=== PATIENT | male | born 1945 | race Caucasian/White ===

== ENCOUNTER 2024-06-24 09:22 | Inpatient (IN) | payer MEDICARE, OTHER ==
[~2024-06-24] VITALS: Ht 165.1 cm; Wt 77.1 kg
[2024-06-24] MEDS ORDERED: HALOPERIDOL LACTATE INJ 5 MG/ML VIAL ONE (10:00)
[2024-06-24] MEDS: HALOPERIDOL LACTATE INJ 5 MG/ML VIAL IM ONE (10:04)
[2024-06-24] MEDS ORDERED: UMEC62.5 IH (10:39)
[2024-06-24] MEDS ORDERED: HYDR-4303 PO (10:39)
[2024-06-24] MEDS ORDERED: NA P133E RC (10:39)
[2024-06-24] MEDS ORDERED: ASPI-1169 PO (10:39)
[2024-06-24] MEDS ORDERED: CYAN500T64 PO (10:39)
[2024-06-24] MEDS ORDERED: ASCO-352 PO (10:39)
[2024-06-24] MEDS ORDERED: ACET-868 PO (10:39)
[2024-06-24] MEDS ORDERED: ATOR40TA PO (10:39)
[2024-06-24] MEDS ORDERED: CHOL100043 PO (10:39)
[2024-06-24] MEDS ORDERED: METO25TA6 PO (10:39)
[2024-06-24] MEDS ORDERED: RISP0.5T5 PO (10:39)
[2024-06-24] MEDS ORDERED: NALO4SPR NS (10:39)
[2024-06-24] MEDS ORDERED: DIVA125C5 PO (10:39)
[2024-06-24] MEDS ORDERED: ALPR0.25 PO (10:39)
[2024-06-24] MEDS ORDERED: MAGN400O6 PO (10:39)
[2024-06-24] MEDS ORDERED: FERR325T23 PO (10:39)
[2024-06-24] MEDS ORDERED: MELA3TAB41 PO (10:39)
[2024-06-24] MEDS ORDERED: CALC-1239 PO (10:39)
[2024-06-24] MEDS ORDERED: LISI-659 PO (10:39)
[2024-06-24] MEDS ORDERED: BISA10SU11 RC (10:39)
[2024-06-24] MEDS ORDERED: FINA5TAB4 PO (10:39)
[2024-06-24 11:47] LABS: BASOPHILS % (AUTO) 0.4 % (0.0-2.0); EOSINOPHILS # (AUTO) 0.1 K/uL (0.0-0.7); EOSINOPHILS % (AUTO) 1.2 % (0.0-6.0); HEMATOCRIT 34 % (39-51); HEMOGLOBIN 11.3 g/dL (13.5-17.5); LYMPHOCYTES # (AUTO) 1.6 K/uL (0.8-4.8); LYMPHOCYTES % (AUTO) 21.3 % (20.0-44.0); MEAN CORPUSCULAR HEMOGLOBIN 31 PG (26.0-33.0); MEAN CORPUSCULAR HGB CONC 33 g/dl (31.0-36.0); MEAN CORPUSCULAR VOLUME 92 fL (80-96); MONOCYTES # (AUTO) 0.9 K/uL (0.1-1.30); MONOCYTES % (AUTO) 11.9 % (2.0-12.0); NEUTROPHILS % (AUTO) 65.2 % (43.0-81.0); PLATELET COUNT (AUTO) 187 K/uL (150-450); RED BLOOD CELL COUNT(AUTO) 3.69 MIL/uL (4.5-6.0); RED CELL DISTRIBUTION WIDTH 15.1 % (11.5-15.0); WHITE BLOOD COUNT (AUTO) 7.7 K/uL (4.3-11.0)
[2024-06-24 12:02] LABS: ACETAMINOPHEN < 10 ug/ml (10-30); ALANINE AMINOTRANSFERASE 10 U/L (12-78); ALBUMIN 2.6 g/dL (3.4-5.0); ALKALINE PHOSPHATASE 109 U/L (46-116); ASPARTATE AMINOTRANSFERASE 15 U/L (15-37); BILIRUBIN,DIRECT 0.1 mg/dL (0.0-0.2); BILIRUBIN,TOTAL 0.3 mg/dL (0.2-1.0); CALCIUM, SERUM 8.9 mg/dL (8.5-10.1); CARBON DIOXIDE 30 mmol/L (21-32); CHLORIDE 110 mmol/L (98-107); CREATININE 0.9 mg/dL (0.6-1.3); GLUCOSE 110 mg/dL (74-106); POTASSIUM 5.2 mmol/L (3.5-5.1); SODIUM SERUM 144 mmol/L (136-145); TOTAL PROTEIN, SERUM 6.6 g/dL (6.4-8.2); UREA NITROGEN, BLOOD 27 mg/dL (7-18)
[2024-06-24 12:09] LABS: ALCOHOL, BLOOD < 3 mg/dL (0-10); SALICYLATE 1.3 mg/dL (2.8-20.0)
[2024-06-24 12:09] LABS: AMPHETAMINE, URINE NEGATIVE (NEGATIVE); APPEARANCE,URINE CLEAR (CLEAR); BARBITURATE, URINE NEGATIVE (NEGATIVE); BILIRUBIN,URINE NEGATIVE (NEGATIVE); BLOOD, URINE NEGATIVE Ery/uL (NEGATIVE); CANNABINOID, URINE NEGATIVE (NEGATIVE); COCCAINE, URINE NEGATIVE (NEGATIVE); COLOR,URINE YELLOW (YELLOW); KETONES,URINE NEGATIVE (NEGATIVE); LEUKOCYTE ESTERASE ,URINE NEGATIVE (NEGATIVE); NITRITE, URINE NEGATIVE (NEGATIVE); PHENCYCLIDINE SCREEN,URINE NEGATIVE (NEGATIVE); PROTEIN,URINE NEGATIVE (NEGATIVE); UGLUCOSE NEGATIVE (NEGATIVE); UROBILINOGEN,URINE 0.2 EU/dL (0.2)
[2024-06-24 12:10] LABS: BENZODIAZEPINE, URINE POSITIVE (NEGATIVE)
[2024-06-24 12:11] LABS: OPIATE, URINE POSITIVE (NEGATIVE)
[2024-06-24 18:16] VITALS: BP 182/88; TEMP 98
[2024-06-24] MEDS ORDERED: MAG HYDROX/AL HYDROX/SIMETH 30 ML UDC PO PRN (18:30)
[2024-06-24] MEDS ORDERED: MAGNESIUM HYDROXIDE 30 ML UDC PO PRN (18:30)
[2024-06-24] MEDS: BLOOD SUGAR DIAGNOSTIC 1 EACH STRIP IN ONE (18:37)
[2024-06-24] MEDS ORDERED: NA PHOS,M-B/NA PHOS,DI-BA 1 EA ENEMA RC PRN (21:00)
[2024-06-24] MEDS ORDERED: BISACODYL SUPP (10 MG) 10 MG/SUPP.RECT SUPP.RECT RC PRN (21:00)
[2024-06-24] MEDS: LORAZEPAM 1 MG TABLET PO PRN (21:42)
[2024-06-24] MEDS: SODIUM ZIRCONIUM CYCLOSILICATE 5 GM POWD.PACK PO ONE (23:04)
[2024-06-25] MEDS ORDERED: HYDROCODONE/APAP 5/325MG TABLET PO SCH
[2024-06-25] MEDS: IPRATROPIUM NEB FS 0.5 MG/2.5 ML AMPUL.NEB NEB SCH (01:30)
[2024-06-25] MEDS: TEMAZEPAM 7.5 MG CAPSULE PO PRN (02:52)
[2024-06-25 08:00] VITALS: BP 121/64; TEMP 97.7; O2SAT 95
[2024-06-25] MEDS: ASCORBIC ACID 500 MG TABLET PO SCH (08:45)
[2024-06-25] MEDS: FINASTERIDE (5 MG) 5 MG TABLET PO SCH (08:45)
[2024-06-25] MEDS: CALCIUM CARB 600MG /VIT D 1 EACH TABLET PO SCH (08:45)
[2024-06-25] MEDS: CHOLECALCIFEROL 1,000 UNIT TABLET (VIT D3) PO SCH (08:46)
[2024-06-25] MEDS: CYANOCOBALAMIN 500 MCG TABLET PO SCH (08:46)
[2024-06-25] MEDS: FERROUS SULFATE (325 MG) 325 MG/TAB TABLET PO SCH (08:46)
[2024-06-25] MEDS: METOPROLOL TARTRATE 25 MG TABLET PO SCH (08:46)
[2024-06-25 08:59] LABS: CHOLESTEROL 120 mg/dL (<200); HDL CHOLESTEROL 44 mg/dL (40-60); LDL 60 mg/dL (0-99); TRIGLYCERIDES 76 mg/dL (30-150)
[2024-06-25] MEDS ORDERED: CALCIUM CARBONATE PO SCH (09:00)
[2024-06-25] MEDS ORDERED: Medication Not On Formulary EA (Cholecalciferol (Vitamin D3) (Vitamin D3) 25 MCG) PO SCH (09:00)
[2024-06-25] MEDS ORDERED: VITAMIN D3 PO SCH (09:00)
[2024-06-25] MEDS ORDERED: [UNRECOGNIZED DRUG - OTHER] PO SCH (09:00)
[2024-06-25 09:04] LABS: ALBUMIN 2.8 g/dL (3.4-5.0); ALKALINE PHOSPHATASE 114 U/L (46-116); ASPARTATE AMINOTRANSFERASE 23 U/L (15-37); BILIRUBIN,TOTAL 0.4 mg/dL (0.2-1.0); CALCIUM, SERUM 8.9 mg/dL (8.5-10.1); CARBON DIOXIDE 26 mmol/L (21-32); CHLORIDE 107 mmol/L (98-107); CREATININE 0.9 mg/dL (0.6-1.3); GLUCOSE 81 mg/dL (74-106); POTASSIUM 3.7 mmol/L (3.5-5.1); SODIUM SERUM 141 mmol/L (136-145); TOTAL PROTEIN, SERUM 6.9 g/dL (6.4-8.2); UREA NITROGEN, BLOOD 24 mg/dL (7-18)
[2024-06-25 09:19] LABS: ALANINE AMINOTRANSFERASE 9 U/L (12-78)
[2024-06-25] MEDS: OLANZAPINE 10 MG VIAL IM ONE (10:22)
[2024-06-25] MEDS ORDERED: OLANZAPINE 10 MG VIAL IM ONE (10:30)
[2024-06-25] MEDS: QUETIAPINE FUMARATE 25 MG TABLET PO SCH (11:11)
[2024-06-25] MEDS: DIVALPROEX SODIUM 125 MG CAP.SPRINK PO SCH (12:58)
[2024-06-25] MEDS: ATORVASTATIN 40 MG TABLET PO SCH (17:05)
[2024-06-25] MEDS: ASPIRIN 81 MG TAB.CHEW PO SCH (17:05)
[2024-06-26] MEDS: SODIUM ZIRCONIUM CYCLOSILICATE 10 GM POWD.PACK ONE (07:30)
[2024-06-26 08:00] VITALS: BP 161/58; TEMP 98.6; O2SAT 96
[2024-06-26] MEDS: LORAZEPAM 1 MG TABLET PO PRN (15:30)
[2024-06-26 16:00] VITALS: BP 132/79; TEMP 97.8; O2SAT 95
[2024-06-26] MEDS: OLANZAPINE 10 MG VIAL IM ONE (18:08)
[2024-06-27 08:00] VITALS: BP 127/83; TEMP 97.3; O2SAT 95
[2024-06-27 09:49] VITALS: O2SAT 95
[2024-06-27 10:05] VITALS: O2SAT 96
[2024-06-27] MEDS: NEOMY SULF/BACITRAC ZN/POLY 15 GM TUBE TP SCH (10:43)
[2024-06-27] MEDS: QUETIAPINE FUMARATE 25 MG TABLET PO SCH (12:07)
[2024-06-27 16:00] VITALS: BP 186/63; TEMP 98.2; O2SAT 98
[2024-06-27] MEDS: MUPIROCIN OINT 2% 22 GM TUBE NS SCH (16:53)
[2024-06-27 20:00] VITALS: BP 128/69; TEMP 98.2; O2SAT 95
[2024-06-27] MEDS: ACETAMINOPHEN 325 MG TABLET PO PRN (20:10)
[2024-06-28] VITALS (7 sets, daily range): BP systolic 137–159; BP diastolic 88–98; TEMP 97.8–98.3; O2SAT 96–100
[2024-06-29 08:00] VITALS: BP 145/80; TEMP 98; O2SAT 96
[2024-06-29] MEDS: Z GUARD REMEDY 4 OZ OINT TP PRN (08:38)
[2024-06-29 16:00] VITALS: BP 137/91; TEMP 97.6; O2SAT 95
[2024-06-29 20:00] VITALS: BP 139/89; TEMP 97.9; O2SAT 99
[2024-06-30 08:00] VITALS: BP 140/68; TEMP 97.7; O2SAT 98
[2024-06-30 08:17] VITALS: O2SAT 96
[2024-06-30 08:27] VITALS: O2SAT 99
[2024-06-30 16:04] VITALS: BP 149/85; TEMP 98; O2SAT 98
[2024-06-30] MEDS: LITHIUM CARBONATE (300 MG CAP) 300 MG CAPSULE PO SCH (16:20)
[2024-06-30 20:00] VITALS: BP 138/69; TEMP 98.3; O2SAT 97
[2024-07-01] MEDS: HYDROCODONE/APAP 5/325MG TABLET PO PRN (07:58)
[2024-07-01 08:00] VITALS: BP 111/78; TEMP 97.9; O2SAT 95
[2024-07-01 16:00] VITALS: BP 132/57; TEMP 97.8; O2SAT 98
[2024-07-01 20:32] VITALS: BP 134/78; TEMP 97.8; O2SAT 98
[2024-07-02 08:16] VITALS: BP 155/63; TEMP 97.2; O2SAT 100
[2024-07-02 08:26] VITALS: O2SAT 95
[2024-07-02 08:38] VITALS: O2SAT 98
[2024-07-02 12:56] VITALS: O2SAT 96
[2024-07-02 16:02] VITALS: BP 114/63; TEMP 98.6; O2SAT 98
[2024-07-02 20:15] VITALS: BP 104/63; TEMP 98.6; O2SAT 98
[2024-07-03 08:22] VITALS: BP 147/87; TEMP 99; O2SAT 98
[2024-07-03] MEDS: QUETIAPINE FUMARATE 25 MG TABLET PO SCH (09:23)
[2024-07-03 16:00] VITALS: BP 137/87; TEMP 98.6; O2SAT 98
[2024-07-03 20:00] VITALS: BP 108/92; TEMP 98.7; O2SAT 96
[2024-07-04 08:00] VITALS: BP 180/97; TEMP 97.8; O2SAT 99
[2024-07-04 16:00] VITALS: BP 129/64; TEMP 98.1; O2SAT 97
[2024-07-04 20:00] VITALS: BP 147/98; TEMP 98.2; O2SAT 97
[2024-07-05 08:00] VITALS: BP 131/96; TEMP 97.7; O2SAT 99
[2024-07-05 16:18] VITALS: BP 137/97; TEMP 98.6; O2SAT 99
[2024-07-05 20:00] VITALS: BP 145/82; TEMP 98.4; O2SAT 98
[2024-07-06 08:00] VITALS: BP 130/76; TEMP 98.6; O2SAT 97
[2024-07-06 16:00] VITALS: BP 119/94; TEMP 98.3; O2SAT 98
[2024-07-06 20:00] VITALS: BP 135/91; TEMP 98.2; O2SAT 96
[2024-07-07 08:00] VITALS: BP 153/67; TEMP 97.9; O2SAT 99
[2024-07-07 16:00] VITALS: BP 107/50; TEMP 98; O2SAT 98
[2024-07-07 20:22] VITALS: BP 118/67; TEMP 98; O2SAT 98
[2024-07-08 08:00] VITALS: BP 137/90; TEMP 97.6; O2SAT 95
[2024-07-08 16:00] VITALS: BP 118/96; TEMP 98; O2SAT 100
[2024-07-08 21:30] VITALS: BP 120/92; TEMP 97.9; O2SAT 99
[2024-07-09] VITALS (7 sets, daily range): BP systolic 145–150; BP diastolic 92–99; TEMP 97.7–98.2; O2SAT 89–98
[2024-07-09] MEDS: ZOLPIDEM TARTRATE 5 MG TABLET PO PRN (01:50)
[2024-07-10 08:00] VITALS: BP 148/93; TEMP 98.2; O2SAT 95
[2024-07-10 08:34] VITALS: BP 148/93
== END 2024-07-10 12:22 | DRG 885 ==
LOC: ER 09:22 → GPS 17:20
PROVIDERS: ADMIT Psychiatry & Neurology Psychiatry; ATTEND Internal Medicine
DX: F31.9 Bipolar disorder, unspecified (principal); F01.518 Vascular dementia, unspecified severity, with other behavioral disturbance; I11.0 Hypertensive heart disease with heart failure; F02.811 Dementia in other diseases classified elsewhere, unspecified severity, with agitation; F02.83 Dementia in other diseases classified elsewhere, unspecified severity, with mood disturbance; E44.0 Moderate protein-calorie malnutrition; D68.59 Other primary thrombophilia; F02.84 Dementia in other diseases classified elsewhere, unspecified severity, with anxiety; F02.818 Dementia in other diseases classified elsewhere, unspecified severity, with other behavioral disturbance; G93.49 Other encephalopathy; F39 Unspecified mood [affective] disorder; G30.9 Alzheimer's disease, unspecified; G20.A1 Parkinson's disease without dyskinesia, without mention of fluctuations; E66.01 Morbid (severe) obesity due to excess calories; I50.9 Heart failure, unspecified; E88.09 Other disorders of plasma-protein metabolism, not elsewhere classified; I25.2 Old myocardial infarction; J44.9 Chronic obstructive pulmonary disease, unspecified; N40.0 Benign prostatic hyperplasia without lower urinary tract symptoms; Z87.440 Personal history of urinary (tract) infections; M19.90 Unspecified osteoarthritis, unspecified site; D64.9 Anemia, unspecified; E87.5 Hyperkalemia; Z91.199 Patient's noncompliance with other medical treatment and regimen due to unspecified reason
CPT/HCPCS: 36415; 80048-TC; 80053-TC; 80061-TC; 80076-TC; 80164-TC; 80178-TC; 85025-TC; 87081-TC; 94799-TC; 97110-TC; 97112-TC; 97116-TC; 97530-TC; G0480; J1630; J3490